=== PATIENT | male | born 1990 | race American Indian/Alaskan Native ===

== ENCOUNTER 2018-07-16 00:18 | Emergency (ER) | payer SELFPAY ==
[2018-07-16 00:49] VITALS: RESP 18; TEMP 97.9
--- NOTE | 2018-07-16 01:19 | ED PDOC ---
Arrival/HPI <Miguel Angel Butts - Last Filed: 07/16/18 01:38> - General Historian: Patient - History of Present Illness Narrative History of Present Illness (Text): 07/16/18 01:15 27 y o male no remarkable past medical history presents to the emergency department complaining of "boil on R groin" x 3 days. Pt states it started out the size of a small pimple, states he tried to squeeze and pop it but nothing came out. Reports history of getting similar lesions on back and buttocks that usually go away on own without intervention. States boil is growing larger and painful. Denies discharge or bleeding coming from affected area. Denies fever, chills, chest pain, shortness of breath, n/v/d/c, abd pain, urinary complaints, or other symptoms. Past medical hx: denies PSurgHx: denies Allergies: NKDA Meds: none Fam hx: DM2 Soc hx: denies smokin, EtOH, or illicit drug use; sexually active w/ female partner, denies hx STDs PMD: Dr. Mcgraw <Vincent Balnco - Last Filed: 07/16/18 01:41> - General Chief Complaint: Abnormal Skin Integrity Past Medical History - Psychiatric Hx Substance Use: No <Vincent Blanco - Last Filed: 07/16/18 01:41> Family/Social History Family/Social History: Diabetes Smoking Status: Current Some Days Smoker Hx Alcohol Use: No Hx Substance Use: No <Vincent Blanco - Last Filed: 07/16/18 01:41> Allergies/Home Meds <Miguel Angel Butts - Last Filed: 07/16/18 01:38> <Vincent Blanco - Last Filed: 07/16/18 01:41> Allergies/Adverse Reactions: Allergies No Known Allergies Allergy (Verified 07/16/18 00:41) Review of Systems - Review of Systems Constitutional: Normal. absent: Fatigue, Weight Change, Fevers, Night Sweats Eyes: Normal ENT: Normal Respiratory: Normal Cardiovascular: Normal Gastrointestinal: Normal Genitourinary Male: absent: Dysuria, Frequency, Hematuria, Urinary Output Changes Musculoskeletal: absent: Myalgias Skin: Skin Lesions, Abscess. absent: Pruritis Neurological: Normal <Vincent Blanco - Last Filed: 07/16/18 01:41> Physical Exam Vital Signs Temp Pulse Resp BP Pulse Ox 07/16/18 00:49 97.9 F 77 18 129/69 95 <Migue lAngel Butts - Last Filed: 07/16/18 01:38> Vital Signs Temp Pulse Resp BP Pulse Ox 07/16/18 00:49 97.9 F 77 18 129/69 95 Temperature: Afebrile Blood Pressure: Normal Pulse: Regular Respiratory Rate: Normal Appearance: Positive for: Well-Appearing, Non-Toxic, Comfortable Pain Distress: Mild Mental Status: Positive for: Alert and Oriented X 3 - Systems Exam Head: Present: Atraumatic, Normocephalic Pupils: Present: PERRL Extroacular Muscles: Present: EOMI Mouth: Present: Moist Mucous Membranes Neck: Present: Normal Range of Motion. No: JVD, Lymphadenopathy Respiratory/Chest: Present: Clear to Auscultation, Good Air Exchange. No: Respiratory Distress, Accessory Muscle Use, Wheezes, Rales, Rhonchi Cardiovascular: Present: Regular Rate and Rhythm, Normal S1, S2. No: Murmurs, Rub, Gallop Abdomen: Present: Normal Bowel Sounds. No: Tenderness, Distention, Mass/Organomegaly Upper Extremity: Present: Normal Inspection, Normal ROM, NORMAL PULSES, Neurovascularly Intact, Capillary Refill < 2s. No: Cyanosis, Edema Lower Extremity: Present: Normal Inspection, Neurovascularly Intact, Capillary Refill < 2 s. No: Edema, CALF TENDERNESS, Cyanosis Neurological: Present: GCS=15, CN II-XII Intact, Speech Normal Skin: Present: Other (Non-fluctuant papule 3 x 2 cm appreciated on upper inner thigh adjacent to genital region, R sided inguinal lymphadenopathy appreciated) Psychiatric: Present: Alert, Oriented x 3, Normal Insight, Normal Concentration <Vincent Blanco - Last Filed: 07/16/18 01:41> Medical Decision Making ED Course and Treatment: Impression: Pt seen and evaluated with medical collections representative. Aware and agree with HPI, clinical findings, plan, and management. Pt, with no significant past medical history, presented for a right groin boil for past few days. Plan: -- Keflex -- Reassess and disposition <Miguel Angel Butts - Last Filed: 07/16/18 01:38> ED Course and Treatment: 07/16/18 01:23 Pt presents with groin abscess, non-fluctuant on exam. Plan: Instructed pt to apply warm compresses several times daily to affected area, wear loose clothing, and allow area to air out. Will discharge pt home on Keflex. Instructed pt to call his PCP or return to the emergency department if symptoms get worse. <Vincent Blanco - Last Filed: 07/16/18 01:41> - PA / [employer] / Resident Statement SIMON has reviewed & agrees with the documentation as recorded. SIMON has examined the patient and agrees with the treatment plan. <Miguel Angel Butts - Last Filed: 07/16/18 01:38> Disposition/Present on Arrival <Miguel Angel Butts - Last Filed: 07/16/18 01:38> - Present on Arrival Any Indicators Present on Arrival: No History of DVT/PE: No History of Uncontrolled Diabetes: No Urinary Catheter: No History of Decub. Ulcer: No History Surgical Site Infection Following: None - Disposition Have Diagnosis and Disposition been Completed?: Yes Disposition Time: 01:41 <Vincent Blanco - Last Filed: 07/16/18 01:41> - Disposition Diagnosis: Skin abscess Disposition: HOME/ ROUTINE Condition: GOOD Discharge Instructions (ExitCare): Marielos (DC) Print Language: WELSH Additional Instructions: Please follow-up with your primary care physician within 1 week of emergency department discharge. Please take antibiotic as prescribed. Please apply warm compresses several times daily to affected area, and wear loose clothing. Should symptoms recur or worsen, please call your primary care physician or report to your nearest emergency department. Prescriptions: Cephalexin [cephalexin] 500 mg PO BID #14 cap Forms: [employer] (Ukrainian)
[2018-07-16 01:46] VITALS: BP 123/79; PULSE 78; O2SAT 100
== END 2018-07-16 01:45 | disposition home or self-care (01) ==
LOC: ED 00:18
DX: L02.214 Cutaneous abscess of groin (principal); Z83.3 Family history of diabetes mellitus